=== PATIENT | male | born 1950 | race Caucasian/White ===

== ENCOUNTER 2018-05-09 14:34 | Emergency (ER) | payer OTHER ==
[~2018-05-09 14:34] MED LIST: ISOVUE-370 76%-LOCM 1 ML ONE
[2018-05-09 14:56] LABS: #Basophils 0.1 thou/uL (0.0-0.2); #Eosinphils 0.4 thou/uL (0.0-0.7); #Lymphocytes 2.1 thou/uL (1.20-3.40); #Monocytes 0.7 thou/uL (0.11-0.59); #Neutrophils 4.1 thou/uL (1.40-6.50); %Basophils 1.1 % (0.0-1.0); %Eosinophils 4.9 % (0.0-10.0); %Monocytes 8.9 % (0.0-10.0); %Neutrophils 56.1 % (42.0-75.0); Hemoglobin 15.3 g/dL (14.0-18.0); Mean Corpuscular HGB CONC 33.7 g/dL (32.0-36.0); Mean Corpuscular Hemoglobin 34.4 pg (27.0-31.0); Mean Platelet Volume 7.4 fL (7.4-10.4); Platelet Count 306 thou/uL (130-400); RBC Distribution Width 12.3 % (11.5-14.5); Red Blood Cell (RBC) Count 4.44 mill/uL (4.70-6.10); White Blood Cell (WBC) Count 7.3 thou/uL (4.8-10.8)
[2018-05-09 15:18] LABS: ALT (SGPT) 35 U/L (8-55); AST (SGOT) 30 U/L (5-34); Albumin 4.3 g/dL (3.4-4.8); Alkaline Phosphatase 80 U/L (40-150); Anion Gap 10 mmol/L (10-20); BUN (Urea Nitrogen) 21 mg/dL (8.4-25.7); Bilirubin, Total 0.6 mg/dL (0.2-1.2); CK (CPK) 135 U/L (30-200); Calc. Creatinine Clearance 0 mL/min (70-130); Calcium 9.4 mg/dL (7.8-10.44); Carbon Dioxide 27 mmol/L (23-31); Chloride 106 mmol/L (98-107); Estimated GFR-MDRD 84; Globulin 3.2 g/dL (2.4-3.5); Glucose 94 mg/dL (80-115); Lipase 6 U/L (8-78); Potassium 4.5 mmol/L (3.5-5.1); Protein, Total 7.5 g/dL (5.8-8.1); Sodium 138 mmol/L (136-145)
[2018-05-09 15:22] LABS: CKMB 3.6 ng/mL (0-6.6); Troponin I Less than 0.010 ng/mL (< 0.028)
--- NOTE | 2018-05-09 15:27 | RAD ---
SINGLE VIEW CHEST: Date: 05/09/18 COMPARISON: None. HISTORY: Chest pain. FINDINGS: Single view of the chest shows a normal sized cardiomediastinal silhouette. There is no evidence of c onsolidation, mass, or pleural effusion. The bones are unremarkable. IMPRESSION: No evidence of acute cardiopulmonary disease. POS: [facility]
--- NOTE | 2018-05-09 17:13 | CT ---
CT PULMONARY ANGIOGRAM WITH IV CONTRAST AND 3D POSTPROCESSIN05/09/18 HISTORY: Shortness of breath, chest pain. FINDINGS: There is good contrast opacification of the pulmonary artery vasculature without filling defects to s uggest pulmonary embolism. No thoracic aortic aneurysm or dissection is identified. No pleural or per icardial effusions are seen. No pneumothoraces, lobar consolidation, or lung masses or nodules are se en. There are degenerative changes in the spine. IMPRESSION: No CT evidence of pulmonary embolism. POS: [facility]
[2018-05-09 18:48] LABS: Troponin I Less than 0.010 ng/mL (< 0.028)
--- NOTE | 2018-05-11 23:08 | EKG ---
Test Reason : Blood Pressure : / mmHG Vent. Rate : 058 BPM Atrial Rate : 058 BPM P-R Int : 198 ms QRS Dur : 132 ms QT Int : 480 ms P-R-T Axes : 049 -26 022 degrees QTc Int : 471 ms Sinus bradycardia Right bundle branch block Abnormal ECG Confirmed by ABNER CALERO ([id number]), deputy editor in chief ASHIA CARVAJAL ([id number] on 05/11/2018 11:07:31 PM Referred By: Confirmed By:ABNER CALERO
== END 2018-05-09 19:26 | disposition home or self-care (01) ==
LOC: ERS 14:34
DX: R07.89 Other chest pain (principal); K21.9 Gastro-esophageal reflux disease without esophagitis; Z86.711 Personal history of pulmonary embolism
CPT/HCPCS: 36415; 71045; 71275; 80053; 82550; 82553; 83690; 83880; 84484; 85025; 93005

== ENCOUNTER 2019-06-30 09:43 | Day surgery (SDC) | payer OTHER ==
[2019-06-27 11:10] VITALS: BMI 35.2
[2019-06-30 10:16] LABS: #Basophils 0.1 thou/uL (0.0-0.2); #Eosinphils 0.2 thou/uL (0.0-0.7); #Lymphocytes 2.2 thou/uL (1.20-3.40); #Monocytes 0.8 thou/uL (0.11-0.59); #Neutrophils 4.2 thou/uL (1.40-6.50); %Basophils 1.3 % (0.0-1.0); %Eosinophils 3.1 % (0.0-10.0); %Lymphocytes 29.9 % (21.0-51.0); %Monocytes 10.1 % (0.0-10.0); %Neutrophils 55.6 % (42.0-75.0); Hemoglobin 15.1 g/dL (14.0-18.0); Mean Corpuscular HGB CONC 33.3 g/dL (32.0-36.0); Mean Platelet Volume 7.1 fL (7.4-10.4); Platelet Count 311 thou/uL (130-400); RBC Distribution Width 12.3 % (11.5-14.5); Red Blood Cell (RBC) Count 4.43 mill/uL (4.70-6.10); White Blood Cell (WBC) Count 7.5 thou/uL (4.8-10.8)
[2019-06-30] MEDS ORDERED: Fentanyl 100 MCG/2 ML VIAL ONE ×2 (10:32→13:31)
[2019-06-30 10:39] LABS: Anion Gap 12 mmol/L (10-20); Carbon Dioxide 25 mmol/L (23-31); Chloride 108 mmol/L (98-107); Potassium 4.2 mmol/L (3.5-5.1); Sodium 141 mmol/L (136-145)
[2019-06-30 10:44] LABS: BUN (Urea Nitrogen) 20 mg/dL (8.4-25.7); Calc. Creatinine Clearance 134 mL/min (70-130); Calcium 9.2 mg/dL (7.8-10.44); Estimated GFR-MDRD Greater than 90; Glucose 95 mg/dL (80-115)
[2019-06-30] MEDS ORDERED: Bupivacaine PF 0.5% 30 ML VIAL ONE (10:49)
[2019-06-30] MEDS ORDERED: Neomycin-Polymyxin 1 ML AMP ONE (10:49)
[2019-06-30] MEDS ORDERED: Clindamycin/D5W 600 mg/50 ml Premix Bag ONE (11:32)
[2019-06-30] MEDS ORDERED: Midazolam HCl 2 mg/2 ml Vial ONE (11:49)
[2019-06-30] MEDS ORDERED: Triamcinolone 40 MG/ML VIAL ONE (11:58)
[2019-06-30] MEDS ORDERED: PROPOFOL 200 MG/20 ML VIAL ONE (13:15)
[2019-06-30] MEDS ORDERED: Lidocaine 1% PF 5 ML VIAL ONE (13:15)
[2019-06-30] MEDS ORDERED: Ondansetron PF 4 MG/2 ML Vial ONE (13:15)
--- NOTE | 2019-06-30 13:33 | RAD ---
XR Foot Lt 3 View STANDARD HISTORY: Postop. COMPARISON: None. FINDINGS: A single anchoring device is seen within the second metatarsal head. There are arthritic ch anges of the metatarsal phalangeal joint. An implant has been placed at the PIP joint of the second toe. There are arthritic changes of the first metatarsal phalangeal joint tiny calcaneal spurs noted. IMPRESSION: Postoperative changes of the second toe.
--- NOTE | 2019-06-30 19:22 | OP ---
DATE OF PROCEDURE: 06/30/2019 PREOPERATIVE DIAGNOSES: 1. Neuroma. 2. Third and fourth intermetatarsal space, left foot. 3. Hammertoe second digit, left foot. 4. Pain, left foot. 5. Plantar fasciitis, right foot. 6. Pain, right foot. POSTOPERATIVE DIAGNOSES: 1. Neuroma. 2. Third and fourth intermetatarsal space, left foot. 3. Hammertoe second digit, left foot. 4. Pain, left foot. 5. Plantar fasciitis, right foot. 6. Pain, right foot. PROCEDURES PERFORMED: 1. Fusion takedown second digit with absorbable implant, left foot. 2. Removal of neuromas, third and fourth intermetatarsal space, left foot. 3. Steroid injection with 40 mg of Kenalog, right foot. HEMOSTASIS: Pneumatic ankle tourniquet on left at 250 mmHg. ESTIMATED BLOOD LOSS: Less than 5 mL. MATERIALS: 3-0 Vicryl, 4-0 Monocryl, and 3-0 Prolene. INJECTABLES: 20 mL of 0.5% Marcaine plain, 1 mL of Kenalog 40. IMPLANTS: Trim-It Pin by [employer]. DESCRIPTION OF PROCEDURE: The patient was brought into the operating room and placed on the operating table in supine position. A well-padded pneumatic ankle tourniquet was placed about the patient's left ankle. Following administration of IV anesthesia, local foot block was given utilizing 20 mL of 0.5% Marcaine plain. The right foot was then prepped utilizing alcohol medially and an injection of 5 mL of 0.5% Marcaine plain mixed with 1 mL of Kenalog 40 was injected into the medial aspect of the patient's right heel. Next, the left foot was then scrubbed, prepped, and draped in the usual aseptic manner. Esmarch bandage was used to exsanguinate the patient's left foot and the pneumatic ankle tourniquet was inflated to 250 mmHg, which provided adequate hemostasis throughout the entire procedure. Next, attention was then directed to the third intermetatarsal space where a 4 cm linear longitudinal incision was made over the dorsal aspect of the patient's metatarsophalangeal joint. The incision was deepened to level of the soft tissue where all bleeders were cauterized as necessary. Next, a neuroma was then identified and carefully resected from the third intermetatarsal space. Due to the same incision, attention was then directed to the fourth intermetatarsal space where a small neuroma was noted and resected and passed from the operative field. The wound was irrigated with copious amounts of sterile normal saline and mixture. The deep tissues were then closed utilizing 3-0 Vicryl, the skin was closed utilizing 4-0 Monocryl and 4-0 Prolene in simple interrupted suture technique. Next, attention was then directed to the second digit where a 2 cm linear longitudinal incision was made over the proximal interphalangeal joint. The incision was deepened to the level of the bone. A transverse osteotomy was then performed. A plantar wedge of bone was resected at this point allowing the toe to be in a slightly angulated position. Next, utilizing techniques of [employer], a Trim-It pin was then placed across the osteotomy site. The wound was irrigated with copious amounts of sterile normal saline and mixture. The incision was closed in a same technique as the previous incision. The pneumatic ankle tourniquet was released with prompt hyperemic response noted to all digits of the patient's left foot. A light compressive dressing was placed above the patient's incisions and followed by Dieudonne wrap. DISCHARGE SUMMARY: The patient tolerated the procedure and injection and was transferred to the recovery room with vital signs stable and vascular status intact to all digits of bilateral feet. Following a period of postoperative monitoring, the patient is to be discharged to home should he have any problems prior to the first postoperative appointment. He is advised to call and will be seen within 1 week of the procedure. Job ID: [id number]
--- NOTE | 2019-07-03 13:07 | EKG ---
Test Reason : PREOP Blood Pressure : / mmHG Vent. Rate : 053 BPM Atrial Rate : 053 BPM P-R Int : 206 ms QRS Dur : 136 ms QT Int : 460 ms P-R-T Axes : 055 -25 031 degrees QTc Int : 431 ms Sinus bradycardia Right bundle branch block Abnormal ECG Confirmed by KELLY FERREIRA ([id number]) on 07/03/2019 1:06:35 PM Referred By: IFTIKHAR Confirmed By:KELLY FERREIRA
== END 2019-06-30 16:00 | disposition home or self-care (01) ==
LOC: SDC 09:43
PROVIDERS: ATTEND Podiatrist Foot & Ankle Surgery
PROC: 0SGQ04Z Fusion of Left Toe Phalangeal Joint with Internal Fixation Device, Open Approach (ICD-10-PCS; principal; 2019-06-30)
PROC: 01BG0ZZ Excision of Tibial Nerve, Open Approach (ICD-10-PCS; principal; 2019-06-30)
DX: G57.82 Other specified mononeuropathies of left lower limb (principal); M20.42 Other hammer toe(s) (acquired), left foot; M72.2 Plantar fascial fibromatosis; I10 Essential (primary) hypertension; D64.9 Anemia, unspecified; I45.10 Unspecified right bundle-branch block; K21.9 Gastro-esophageal reflux disease without esophagitis; E66.9 Obesity, unspecified; Z68.35 Body mass index [BMI] 35.0-35.9, adult; Z87.891 Personal history of nicotine dependence; Z79.82 Long term (current) use of aspirin; Z79.899 Other long term (current) drug therapy; Z88.1 Allergy status to other antibiotic agents; Z88.5 Allergy status to narcotic agent
CPT/HCPCS: 36415; 76000; 80048; 85025; 88304; 93005; 93010; J0690; J2250; J3010; J3301; J3490; S0020

== ENCOUNTER 2019-07-21 18:00 | Outpatient (CLI) | payer OTHER | END 2019-07-21 18:01 | disposition home or self-care (01) | LOC: SLEEPLAB 18:00 | PROVIDERS: ATTEND Family Medicine | DX: G47.33 Obstructive sleep apnea (adult) (pediatric) (principal); K21.9 Gastro-esophageal reflux disease without esophagitis; E66.9 Obesity, unspecified; I10 Essential (primary) hypertension; R06.83 Snoring; Z86.711 Personal history of pulmonary embolism | CPT/HCPCS: 95806 ==

== ENCOUNTER 2020-03-16 11:11 | Outpatient (CLI) | payer OTHER ==
--- NOTE | 2020-03-16 13:33 | RAD ---
RIGHT FOOT: 03/16/20 Three views. HISTORY: Foot pain. Tarsals show mild spurring from the plantar calcaneus. Mild degenerative change at the talonavicular and within the intertarsal joints and at the tarsometatarsal joints. Mild DJD at the first MTP joint. The other MTP joints appear unremarkable. IP joints are unremarkable . No fracture or acute abnormality. Incidentally noted are degenerative changes at the tibiotalar joint. IMPRESSION: There are mild degenerative changes as described. POS: [facility]
--- NOTE | 2020-03-16 13:36 | RAD ---
LEFT FOOT: 03/16/20 Three views. HISTORY: Foot pain. COMPARISON: Comparison made to left foot exam from 06/30/19. FINDINGS: Mild degenerative change in the intertarsal joints with mild spurring at the talonavicular and tarsom etatarsals. Mild to moderate DJD at the first MTP joint appears stable. Postoperative changes at the head of the second metatarsal with metallic pin again noted. There is f lattening of the head of the second metatarsal with some erosive subchondral changes on both sides of the second MTP joint, stable in appearance from 06/30/19. An implant has been placed at the PIP joint of the second toe which is unchanged in appearance. The other IP joints show mild degenerative change and are stable. IMPRESSION: Degenerative and postoperative changes of left foot appears stable from 06/30/19. POS: [facility]
== END 2020-03-16 11:12 | disposition home or self-care (01) ==
LOC: BICRAD 11:11
PROVIDERS: ATTEND Podiatrist Foot Surgery
DX: M79.671 Pain in right foot (principal); M79.672 Pain in left foot; M19.072 Primary osteoarthritis, left ankle and foot; M19.071 Primary osteoarthritis, right ankle and foot; Z98.890 Other specified postprocedural states

== ENCOUNTER 2020-05-20 13:00 | Inpatient (IN) | payer OTHER ==
[2020-06-25 09:22] VITALS: BMI 34.7
[2020-06-28] MEDS ORDERED: Tranexamic Acid 1,000 MG/10 ML VIAL ONE ×2 (07:19→11:19)
[2020-06-28] MEDS ORDERED: Clindamycin/D5W 600 mg/50 ml Premix Bag ONE (07:19)
[2020-06-28] MEDS ORDERED: Sodium Chloride 0.9% 100 ML ONE ×2 (07:19→11:19)
[2020-06-28] MEDS ORDERED: Vancomycin 1.5 GRAM/300 ML BAG ONE (07:19)
[2020-06-28] MEDS ORDERED: Fentanyl 100 MCG/2 ML VIAL ONE ×4 (08:01→11:20)
[2020-06-28] MEDS ORDERED: Midazolam HCl 2 mg/2 ml Vial ONE (08:01)
[2020-06-28] MEDS ORDERED: Ondansetron PF 4 MG/2 ML Vial IVP PRN ×2 (09:01→09:15)
[2020-06-28] MEDS ORDERED: Promethazine HCl 25 MG/ML VIAL IM PRN ×3 (09:01→09:35)
[2020-06-28] MEDS ORDERED: Acetaminophen 325 MG TAB PO PRN (09:01)
[2020-06-28] MEDS ORDERED: Fentanyl 100 MCG/2 ML VIAL SLOW IVP PRN (09:01)
[2020-06-28] MEDS ORDERED: Zolpidem Tartrate 5 MG TAB PO PRN ×2 (09:01→09:15)
[2020-06-28] MEDS ORDERED: traMADol HCl 50 MG TAB PO PRN ×2 (09:01→09:15)
[2020-06-28] MEDS ORDERED: diphenhydrAMINE 25 MG CAP PO PRN (09:01)
[2020-06-28] MEDS ORDERED: Tranexamic Acid 1,000 MG in Sodium Chloride 0.9% 100 ML IVPB SCH (09:15)
[2020-06-28] MEDS ORDERED: Ropivacaine 0.2% HCl/PF (40 MG/20 ML VIAL) ONE (09:35)
[2020-06-28] MEDS ORDERED: Ketorolac Tromethamine 30 MG/ML VIAL ONE (09:35)
[2020-06-28] MEDS ORDERED: Lidocaine 1% PF 5 ML VIAL ONE (09:35)
[2020-06-28] MEDS ORDERED: PROPOFOL 200 MG/20 ML VIAL ONE (09:35)
[2020-06-28] MEDS ORDERED: Ondansetron PF 4 MG/2 ML Vial ONE (09:35)
[2020-06-28] MEDS ORDERED: HYDROmorphone 2 MG/ML VIAL SLOW IVP PRN (09:35)
[2020-06-28] MEDS ORDERED: Meperidine HCl/PF 25 MG/ML VIAL SLOW IVP PRN (09:35)
[2020-06-28] MEDS ORDERED: Bupivacaine HCl 0.5%/Epinephrine 1:200,000/PF 30 ml Vial ONE (09:35)
[2020-06-28] MEDS ORDERED: Dexamethasone 20 MG/5 ML VIAL ONE (09:35)
[2020-06-28] MEDS ORDERED: Promethazine HCl 25 MG/ML VIAL SLOW IVP PRN (09:35)
[2020-06-28] MEDS ORDERED: Bupivacaine PF 0.5% 30 ML VIAL ONE (09:49)
[2020-06-28] MEDS ORDERED: Ketorolac Tromethamine 30 MG/ML VIAL IVP SCH (14:00)
[2020-06-28] MEDS: Sodium Chloride 0.9% 1,000 ML IV SCH ×2 (16:46→20:34)
[2020-06-28] MEDS: Ketorolac Tromethamine 30 MG/ML VIAL IVP SCH ×2 (16:47→17:54)
[2020-06-28] MEDS: Clindamycin/D5W 900 MG in Premix Bag 1 BAG IVPB SCH (16:48)
[2020-06-28] MEDS: HYDROcodone/Acetaminophen 10/325 mg Tablet PO PRN (16:49)
[2020-06-28] MEDS ORDERED: Vancomycin HCl 1.5 GM in Sodium Chloride 0.9% 250 ML 300 ML IVPB SCH (18:00)
[2020-06-28] MEDS ORDERED: Vancomycin 1.5 GRAM/300 ML BAG 1.5 GM in Premix Bag 1 BAG IVPB SCH (19:30)
[2020-06-28] MEDS: Aspirin 81 mg Enteric Coated Tablet PO SCH (20:22)
[2020-06-28] MEDS: Loratadine 10 MG TAB PO SCH (20:22)
--- NOTE | 2020-06-28 21:53 | OP ---
DATE OF PROCEDURE: 06/28/2020 PREOPERATIVE DIAGNOSIS: Right knee osteoarthrosis. POSTOPERATIVE DIAGNOSIS: Right knee osteoarthrosis. PROCEDURES PERFORMED: Right total knee replacement using Zapa pinless navigation. NUCLE[employer] MECHANICAL SPECIALIST: Cain Alvarenga PA-C. The occupational therapist assistant surgeon was present throughout the procedure to include the approach, placement of all implants, and closure of entire knee wound. DISPOSITION: He did go to recovery room in stable condition. ANESTHESIA: He had general anesthetics as well as preoperative block. IMPLANTS: To the right knee include a Zapa Triathlon total knee system. The femur was a size 6 right cruciate-retaining femur. We used a 32 x 10 asymmetric X3 patella. We used a size 6 primary tibial base plate and a 6 x 9 mm CS X3 tibial bearing. INDICATIONS FOR PROCEDURE: This is a 70-year-old male, who has had severe right knee pain secondary to osteoarthrosis and at this time has failed all nonoperative treatment. DESCRIPTION OF PROCEDURE: After all appropriate consent forms were explained and signed, the patient was taken back to the operating room and at this time was given general anesthetic. Once the level of anesthesia was appropriate, a well-padded tourniquet was placed on the right leg, and the leg was then prepped and draped in standard surgical fashion. The limb was exsanguinated and tourniquet taken up to 300 mmHg. Midline incision was made with a 10 blade down through the skin and subcutaneous tissue. Bovie electrocautery was used to coagulate any brisk venous bleeding. A new blade was used to make a medial parapatellar arthrotomy. Small subperiosteal release was performed medially and excess fat pad was removed. The knee was flexed up to gain access to the femur. The femur was navigated and distal femoral resection was made. Epicondylar access was used to align our sizing jig and this was pinned in place. We sized our femur to be a 6. 4:1 cutting block was applied and pinned. Anterior and posterior chamfer cuts were then made. We navigated out our proximal tibia and made our proximal tibial resection. Spreaders were used to remove any posterior osteophytes off the back of the femur as well as remaining meniscal tissue. A long alignment jared was then used to achieve correct rotation of our tibial baseplate and a size 6 was chosen. This was pinned in place. We trialed the polyethylene and a 6 x 9 mm CS X3 polyethylene gave us full extension and good stability throughout range of motion. Two towel clips and a saw were used to cut our patella. Three lug nuts were drilled and 32 x 10 asymmetric X3 patella was trialed which sat nicely in the trochlear groove. We then drilled our femur and punched our tibia. All components were removed. The knee was thoroughly irrigated and dried. Cement was mixed into the cement gun on the back table. Components were then placed. The knee was held out in full extension until the cement had dried. All excess bone cement was removed. Multiple #2 Vicryl stitches as well as a Quill were used to close our extensor mechanism. 0 Quill followed by a running Monoderm was then used to close the skin. Surgicel glue was then used on the skin. Once this had dried, soft tissue dressing was applied to the limb, tourniquet was let down, and the toes pinked up nicely. The patient was then awakened and taken to the recovery room in stable condition. All counts were correct at the end of the case. The patient did receive preoperative IV antibiotics. The patient was injected with Marcaine for postoperative pain relief. Job ID: [id number]
[2020-06-29] MEDS: Clindamycin/D5W 900 MG in Premix Bag 1 BAG IVPB SCH ×2 (00:39→08:25)
[2020-06-29] MEDS: Ketorolac Tromethamine 30 MG/ML VIAL IVP SCH ×2 (00:39→04:59)
[2020-06-29] MEDS: HYDROcodone/Acetaminophen 10/325 mg Tablet PO PRN ×4 (00:40→23:50)
[2020-06-29] MEDS: Sodium Chloride 0.9% 1,000 ML IV SCH ×2 (05:03→16:16)
[2020-06-29 05:21] LABS: Mean Corpuscular HGB CONC 33.6 g/dL (32.0-36.0); Mean Corpuscular Hemoglobin 34.4 pg (27.0-31.0); Mean Platelet Volume 7.6 fL (7.4-10.4); Platelet Count 266 thou/uL (130-400); RBC Distribution Width 12.6 % (11.5-14.5); Red Blood Cell (RBC) Count 3.49 mill/uL (4.70-6.10); White Blood Cell (WBC) Count 15.6 thou/uL (4.8-10.8)
[2020-06-29] MEDS: Aspirin Chewable 81 MG TAB PO SCH (07:44)
[2020-06-29] MEDS: Aspirin 81 mg Enteric Coated Tablet PO SCH ×2 (08:35→20:41)
[2020-06-29] MEDS: CeleCOXIB 100 MG CAP PO SCH ×2 (08:35→20:41)
[2020-06-29] MEDS: Senokot S 8.6-50 MG TAB PO SCH ×2 (08:36→20:41)
[2020-06-29] MEDS: Cholecalciferol 1,000 UNITS (25 MCG) TAB PO SCH (08:37)
[2020-06-29] MEDS: Ferrous Gluconate 324 MG TAB PO SCH ×2 (08:37→20:41)
[2020-06-29] MEDS: Folic Acid 1 MG TAB PO SCH (08:37)
[2020-06-29] MEDS: Multivitamin W/ Minerals 1 TAB PO SCH (08:37)
[2020-06-29] MEDS: Rivaroxaban 10 MG TAB PO SCH (08:37)
[2020-06-29] MEDS: Fluticasone Propionate Nasal Spray 16 gm Bottle NASAL SCH (08:38)
[2020-06-29] MEDS: Cyanocobalamin (Vitamin B-12) 1,000 MCG TAB PO SCH (08:38)
--- NOTE | 2020-06-29 09:13 | PRG ---
DATE OF SERVICE: 06/29/2020 SUBJECTIVE: Louie is a 70-year-old white male, postop day 1 from right total knee arthroplasty. He is comfortable. He had some pain this morning, but it has since been controlled with the indwelling block. He did not ambulate yesterday due to the weakness in the leg. OBJECTIVE: VITAL SIGNS: Temperature 97.8, pulse 65, respiratory rate 16, and blood pressure is 111/55. GENERAL: He is alert and oriented to person, place, time, and situation, responsive, appropriate with the examiner, conversive, and pleasant. EXTREMITIES: Incision is clean. No strike through. No erythema. He is neurovascularly intact in the right lower extremity with good dorsiflexion, inversion, eversion. LABORATORY DATA: Hemoglobin and hematocrit 12.0 and 35.8. IMPRESSION: 1. A 70-year-old male, postop day 1 right total knee arthroplasty, doing well. 2. Asymptomatic postoperative anemia. PLAN: Continue current care. Continue to observe for hemorrhage and pain control. Recheck tomorrow and expected discharge then. Job ID: [id number]
[2020-06-29] MEDS: traMADol HCl 50 MG TAB PO PRN ×2 (12:22→18:25)
[2020-06-29] MEDS: Ropivacaine HCl/PF 250 ML in Premix Bag 1 BAG NERVE BLCK SCH (12:56)
[2020-06-29] MEDS: Fentanyl 100 MCG/2 ML VIAL IV PRN ×2 (17:06→20:40)
[2020-06-29] MEDS: Loratadine 10 MG TAB PO SCH (20:41)
[2020-06-30] MEDS: Sodium Chloride 0.9% 1,000 ML IV SCH ×3 (01:20→22:41)
[2020-06-30] MEDS: HYDROcodone/Acetaminophen 10/325 mg Tablet PO PRN ×4 (03:18→22:34)
[2020-06-30] MEDS: traMADol HCl 50 MG TAB PO PRN ×3 (05:36→20:42)
[2020-06-30 06:01] LABS: Hemoglobin 12.1 g/dL (14.0-18.0); Mean Corpuscular Hemoglobin 35.5 pg (27.0-31.0); Mean Platelet Volume 8.1 fL (7.4-10.4); Platelet Count 246 thou/uL (130-400); RBC Distribution Width 12.7 % (11.5-14.5); White Blood Cell (WBC) Count 13.7 thou/uL (4.8-10.8)
[2020-06-30] MEDS: Fluticasone Propionate Nasal Spray 16 gm Bottle NASAL SCH (09:32)
[2020-06-30] MEDS: Cyanocobalamin (Vitamin B-12) 1,000 MCG TAB PO SCH (09:33)
[2020-06-30] MEDS: CeleCOXIB 100 MG CAP PO SCH ×2 (09:34→20:43)
[2020-06-30] MEDS: Aspirin 81 mg Enteric Coated Tablet PO SCH ×2 (09:34→20:43)
[2020-06-30] MEDS: Ferrous Gluconate 324 MG TAB PO SCH ×2 (09:36→20:43)
[2020-06-30] MEDS: Multivitamin W/ Minerals 1 TAB PO SCH ×2 (09:36→09:41)
[2020-06-30] MEDS: Senokot S 8.6-50 MG TAB PO SCH ×2 (09:37→20:43)
[2020-06-30] MEDS: Cholecalciferol 1,000 UNITS (25 MCG) TAB PO SCH (09:38)
[2020-06-30] MEDS: Rivaroxaban 10 MG TAB PO SCH (09:38)
[2020-06-30] MEDS: Folic Acid 1 MG TAB PO SCH (09:38)
[2020-06-30] MEDS: Aspirin Chewable 81 MG TAB PO SCH (09:39)
[2020-06-30] MEDS: Ropivacaine HCl/PF 250 ML in Premix Bag 1 BAG NERVE BLCK SCH (12:13)
[2020-06-30] MEDS: Loratadine 10 MG TAB PO SCH (20:43)
[2020-07-01] MEDS: HYDROcodone/Acetaminophen 10/325 mg Tablet PO PRN ×4 (02:11→14:31)
[2020-07-01 05:59] LABS: Hemoglobin 11.8 g/dL (14.0-18.0); Mean Corpuscular HGB CONC 33.1 g/dL (32.0-36.0); Mean Corpuscular Hemoglobin 34.1 pg (27.0-31.0); Mean Platelet Volume 7.6 fL (7.4-10.4); Platelet Count 268 thou/uL (130-400); RBC Distribution Width 12.5 % (11.5-14.5); Red Blood Cell (RBC) Count 3.47 mill/uL (4.70-6.10); White Blood Cell (WBC) Count 13.5 thou/uL (4.8-10.8)
[2020-07-01] MEDS: Sodium Chloride 0.9% 1,000 ML IV SCH (09:09)
[2020-07-01] MEDS: Aspirin Chewable 81 MG TAB PO SCH (09:11)
[2020-07-01] MEDS: Aspirin 81 mg Enteric Coated Tablet PO SCH (09:16)
[2020-07-01] MEDS: Cholecalciferol 1,000 UNITS (25 MCG) TAB PO SCH (09:17)
[2020-07-01] MEDS: CeleCOXIB 100 MG CAP PO SCH (09:17)
[2020-07-01] MEDS: Ferrous Gluconate 324 MG TAB PO SCH (09:18)
[2020-07-01] MEDS: Folic Acid 1 MG TAB PO SCH (09:18)
[2020-07-01] MEDS: Cyanocobalamin (Vitamin B-12) 1,000 MCG TAB PO SCH (09:18)
[2020-07-01] MEDS: Rivaroxaban 10 MG TAB PO SCH (09:18)
[2020-07-01] MEDS: Multivitamin W/ Minerals 1 TAB PO SCH (09:18)
[2020-07-01] MEDS: Senokot S 8.6-50 MG TAB PO SCH (09:18)
[2020-07-01] MEDS: Fluticasone Propionate Nasal Spray 16 gm Bottle NASAL SCH (09:19)
[2020-07-01] MEDS: traMADol HCl 50 MG TAB PO PRN (12:53)
[2020-07-01 16:15] VITALS: BP 145/72; TEMP 97.6
== END 2020-07-01 17:21 | disposition home or self-care (01) | DRG 470 ==
LOC: SURG A 06-28 07:04 → SURG B 06-28 12:44
PROVIDERS: ADMIT Orthopaedic Surgery; ATTEND Orthopaedic Surgery
PROC: 0SRC0J9 Replacement of Right Knee Joint with Synthetic Substitute, Cemented, Open Approach (ICD-10-PCS; principal; 2020-06-28)
DX: M17.11 Unilateral primary osteoarthritis, right knee (principal); D62 Acute posthemorrhagic anemia; Z88.5 Allergy status to narcotic agent; Z88.1 Allergy status to other antibiotic agents
CPT/HCPCS: 36415; 85027; C1713; C1776; J1100; J1885; J2250; J2405; J2704; J2795; J3010; J3370; J3490; S0020

== ENCOUNTER 2020-06-23 06:40 | Outpatient (CLI) | payer OTHER ==
[2020-06-23 14:26] LABS: Bilirubin Neg (Negative); Blood, Urine Negative (Negative); Clarity Clear (Clear); Glucose, Urine (Dipstick) Normal (Negative); Ketone, Urine Negative (Negative); Leukocyte Negative (Negative); Nitrite Negative (Negative); Protein, Urine (Dipstick) Negative (Neg-Trace); Urobilinogen Normal mg/dL (Less than 2)
[2020-06-23 14:37] LABS: #Basophils 0.1 10x3/uL (0.0-0.2); #Eosinphils 0.4 10x3/uL (0.0-0.5); #Monocytes 0.9 10x3/uL (0.0-1.1); #Neutrophils 4.9 10x3/uL (1.5-8.4); %Basophils 0.7 % (0.0-2.0); %Eosinophils 4.3 % (0.0-6.0); %Monocytes 10.9 % (0.0-10.0); %Neutrophils 59.7 % (40.0-75.0); ALT (SGPT) 39 U/L (8-55); AST (SGOT) 29 U/L (5-34); Albumin 4.4 g/dL (3.4-4.8); Alkaline Phosphatase 93 U/L (40-110); Anion Gap 16 mmol/L (10-20); BUN (Urea Nitrogen) 18 mg/dL (8.4-25.7); Bilirubin, Total 0.6 mg/dL (0.2-1.2); Calc. Creatinine Clearance 0 mL/min (70-130); Calcium 9.2 mg/dL (7.8-10.44); Carbon Dioxide 25 mmol/L (23-31); Chloride 106 mmol/L (98-107); Globulin 2.6 g/dL (2.4-3.5); Glucose 88 mg/dL (80-115); Hemoglobin 14.4 g/dL (14.0-18.0); Mean Corpuscular HGB CONC 33.3 G/DL (32.0-36.0); Mean Corpuscular Hemoglobin 33.7 PG (27.0-33.0); Mean Corpuscular Volume 101.2 fl (80.0-100.0); Mean Platelet Volume 10.3 fl (7.4-10.4); Platelet Count 321 10x3/uL (130-400); Potassium 4.8 mmol/L (3.5-5.1); RBC Distribution Width 13.9 % (11.5-14.5); Red Blood Cell (RBC) Count 4.27 10x6/uL (4.40-5.80); Sodium 142 mmol/L (136-145); White Blood Cell (WBC) Count 8.2 10x3/uL (4.5-11.0)
[2020-06-23 14:43] LABS: Prothrombin Time 10.6 sec (9.5-12.1)
[2020-06-23 14:53] LABS: Bacteria/HPF None Seen HPF (None Seen); RBC/HPF 0-3 HPF (0-3); Squamous Epithelial None Seen HPF (0-3); WBC/HPF None Seen HPF (0-3)
[2020-06-23 23:53] LABS: SARS-CoV-2 MS2 Positive; SARS-CoV-2 N Gene Negative; SARS-CoV-2 S Gene Negative; SARS-CoV-2 by NAA Not Detected (NotDetected); SARS-CoV-2 orf1ab Negative
== END 2020-06-23 06:41 | disposition home or self-care (01) ==
LOC: LABBT 06:40
PROVIDERS: ATTEND Orthopaedic Surgery
DX: Z01.818 Encounter for other preprocedural examination (principal); M17.11 Unilateral primary osteoarthritis, right knee; Z20.828 Contact with and (suspected) exposure to other viral communicable diseases
CPT/HCPCS: 80053; 81001; 85025; 85610; 87081; 87635; 93005; 93010; U0003

== ENCOUNTER 2020-07-04 21:19 | Emergency (ER) | payer OTHER ==
[2020-07-04] MEDS ORDERED: Morphine 10 MG/ML VIAL ONE (23:24)
[2020-07-04] MEDS ORDERED: Ondansetron PF 4 MG/2 ML Vial ONE (23:24)
[2020-07-05] MEDS ORDERED: HYDROcodone/Acetaminophen 10/325 mg Tablet ONE (00:40)
--- NOTE | 2020-07-05 07:40 | RAD ---
EXAM: 4 views of the right knee HISTORY: Knee pain COMPARISON: None FINDINGS: No knee effusion is seen. The patient is status post right knee arthroplasty without periha rdware lucency or fracture. Air is seen along the inferior aspect of the patella which could be from recent surgery. IMPRESSION: Status post right knee arthroplasty. There is air adjacent to the patella. This could be from recent surgery or secondary to an infection. Correlate with timing of surgery.
--- NOTE | 2020-07-05 15:22 | ULT ---
ULTRASOUND DOPPLER DUPLEX VENOUS RIGHT LOWER EXTREMITY: DATE: 07/04/2020 11:57 PM HISTORY: 70-year-old male with right lower extremity pain TECHNIQUE: Grayscale, color-flow, and spectral analysis, of major veins of right lower extremity. FINDINGS: There is demonstration of blood flow with normal compressibility, of the right common femoral, profun da femoral, greater saphenous, femoral, popliteal, and posterior tibial, veins. IMPRESSION: Negative. No deep venous thrombosis of right lower extremity.
== END 2020-07-05 02:42 | disposition home or self-care (01) ==
LOC: ERS 21:19
DX: M25.561 Pain in right knee (principal); Z96.651 Presence of right artificial knee joint; K21.9 Gastro-esophageal reflux disease without esophagitis; M79.81 Nontraumatic hematoma of soft tissue; Z79.01 Long term (current) use of anticoagulants; Z86.711 Personal history of pulmonary embolism
CPT/HCPCS: 96372; 96374; J2270; J2405

== ENCOUNTER 2020-08-26 19:19 | Emergency (ER) | payer OTHER ==
[~2020-08-26 19:19] MED LIST changes: -ISOVUE-370 76%-LOCM 1 ML ONE; +Iopamidol-370 76% 500 ML 1 ML ONE
[2020-08-26 20:02] LABS: Hemoglobin 14.4 g/dL (14.0-18.0); Mean Corpuscular HGB CONC 33.3 g/dL (32.0-36.0); Mean Corpuscular Hemoglobin 33.5 pg (27.0-31.0); Mean Platelet Volume 7.1 fL (7.4-10.4); Platelet Count 301 thou/uL (130-400); RBC Distribution Width 11.8 % (11.5-14.5); White Blood Cell (WBC) Count 5.3 thou/uL (4.8-10.8)
[2020-08-26] MEDS ORDERED: Morphine 2 MG/ML VIAL ONE (20:19)
[2020-08-26] MEDS ORDERED: Ondansetron PF 4 MG/2 ML Vial ONE (20:19)
[2020-08-26 20:22] LABS: ALT (SGPT) 52 U/L (8-55); AST (SGOT) 52 U/L (5-34); Albumin 3.7 g/dL (3.4-4.8); Alkaline Phosphatase 90 U/L (40-110); Anion Gap 14 mmol/L (10-20); BUN (Urea Nitrogen) 24 mg/dL (8.4-25.7); Bilirubin, Total 0.4 mg/dL (0.2-1.2); Calc. Creatinine Clearance 0 mL/min (70-130); Calcium 8.1 mg/dL (7.8-10.44); Carbon Dioxide 26 mmol/L (23-31); Chloride 96 mmol/L (98-107); Globulin 3.2 g/dL (2.4-3.5); Glucose 115 mg/dL (80-115); Lipase 36 U/L (8-78); Potassium 4.7 mmol/L (3.5-5.1); Protein, Total 6.9 g/dL (5.8-8.1); Sodium 131 mmol/L (136-145)
[2020-08-26 20:23] LABS: Band 1 % (5-11); Lymphocytes 14 % (21-51); MDiff Complete? YES; Monocytes 17 % (0-10); Neutrophil 65 % (42-75); Platelet Morphology Comment Appears Adequate; RBC Morphology Normal; Reactive Lymphocytes 3 % (0-10)
--- NOTE | 2020-08-26 21:09 | RAD ---
Chest one view HISTORY: Chest pain. COMPARISON: 05/09/2018. FINDINGS: Cardiac silhouette is magnified by projection. Pulmonary vasculature are unremarkable. Mediastinum is midline. No airspace consolidation or evidence of pneumothorax. IMPRESSION : No abnormalities are demonstrated.
[2020-08-26] MEDS ORDERED: Metoclopramide HCl 10 MG/2 ML VIAL ONE (21:26)
--- NOTE | 2020-08-26 21:42 | CT ---
CT abdomen and pelvis with IV contrast HISTORY: Abdominal pain. Recent COVID pneumonitis. FINDINGS: Mild residual patchy groundglass infiltrate remains at each lung base. No pleural fluid sanjuanita dent. Cortical cysts at the superior pole left kidney are 2.8 cm and 1.7 cm greatest diameters. No solid ma ss or hydronephrosis. No evidence of bowel obstruction or inflammation. No biliary abnormalities. A 1.5 cm intramuscular lipoma involves the anterior aspect of the right gluteus medius muscle. 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 IMPRESSION : No acute abnormalities are demonstrated.
[2020-08-26 22:09] LABS: Bilirubin Negative (Negative); Blood, Urine Negative (Negative); Clarity Clear (Clear); Glucose, Urine (Dipstick) Normal (Negative); Ketone, Urine Trace mg/dL (Negative); Leukocyte Negative Leu/uL (Negative); Nitrite Negative (Negative); Protein, Urine (Dipstick) Negative (Neg-Trace); Specific Gravity, Urine 1.036 (1.002-1.036); Urobilinogen Normal mg/dL (Less than 2)
--- NOTE | 2020-08-28 14:27 | EKG ---
Test Reason : Blood Pressure : / mmHG Vent. Rate : 072 BPM Atrial Rate : 072 BPM P-R Int : 170 ms QRS Dur : 116 ms QT Int : 422 ms P-R-T Axes : 035 -44 026 degrees QTc Int : 462 ms Normal sinus rhythm Left axis deviation Right bundle branch block Abnormal ECG Confirmed by AMAYA SEPULVEDA DO ([id number]), editor trade journal [employer] ([id number]) on 08/28/2020 2:27:24 PM Referred By: Confirmed By:AMAYA SEPULVEDA DO
== END 2020-08-27 01:03 | disposition home or self-care (01) ==
LOC: ERS 19:19
DX: R10.84 Generalized abdominal pain (principal); U07.1 COVID-19; R11.2 Nausea with vomiting, unspecified; K21.9 Gastro-esophageal reflux disease without esophagitis; Z79.82 Long term (current) use of aspirin; Z79.899 Other long term (current) drug therapy
CPT/HCPCS: 71045; 74177; 80053; 81003; 83690; 85025; 93005; 96374; 96375; J2270; J2405; J2765; Q9967

== ENCOUNTER 2020-09-08 13:13 | Emergency (ER) | payer OTHER | END 2020-09-08 15:05 | disposition home or self-care (01) | LOC: ERS 13:13 | DX: L03.116 Cellulitis of left lower limb (principal); I26.99 Other pulmonary embolism without acute cor pulmonale; K21.9 Gastro-esophageal reflux disease without esophagitis; I10 Essential (primary) hypertension; Z79.899 Other long term (current) drug therapy; Z79.82 Long term (current) use of aspirin; Z79.01 Long term (current) use of anticoagulants | CPT/HCPCS: 99283 ==